=== PATIENT | female | born 1940 | race Asian ===

== ENCOUNTER → 2018-08-10 08:32 | Outpatient (CLI) | payer OTHER, SELFPAY ==
--- NOTE | 2018-08-10 | DI.MRI.S_ITS ---
PROCEDURE: MR LUMBAR SPINE WO CON INDICATIONS: LUMBAR RADICULOPATHY TECHNIQUE: Noncontrast sagittal T1 spin echo and T2 fast echo, sagittal STIR, axial T1 and T2 fast spin echo through the lumbar spine. In cases with scoliosis, additional coronal T2 fast spin echo may be performed. COMPARISON: [facility], CR, XR LUMBAR SPINE WITH OBLIQUES, 07/04/2017, 9:38. [facility], MR, L-SPINE WITHOUT CONTRAST, 05/31/2015, 8:32. [facility], MR, L-SPINE WITHOUT CONTRAST, 01/23/2017, 12:01. FINDINGS: Image quality: Excellent. Alignment and Curvature: There is grade one anterolisthesis at L5-S1. Bone Marrow: Degenerative endplate signal changes at L2, L3, L4 and L5. No acute vertebral body compression fractures. Spinal Cord: Conus medullaris terminates at the L1-L2 level. Visualized cord demonstrates normal signal and size. Paraspinous Soft Tissues: No paravertebral masses. Multiple right renal cysts are present. L1-L2: Mild loss of disc height and disc desiccation. There is mild posterior disc bulge. The central canal is minimally narrowed. No foraminal stenosis. There is no significant change from the last exam. L2-L3: Severe loss of disc height and disc desiccation. There is diffuse posterior disc bulge and disc osteophyte complex. Mild bilateral facet arthropathy and moderate hypertrophy of ligament flavum. The central canal is moderately narrowed. Kiwxaftg-[id number]-[id number] right and moderate left foraminal stenosis. There is progression of disc and facet degeneration compared to the last exam. L3-L4: Moderate to severe loss of disc height and disc desiccation. There is diffuse posterior disc bulge and disc osteophyte complex. There may be annular fissure. Mild bilateral facet arthropathy and moderate hypertrophy of ligament flavum. The central canal is severely narrowed. Btlyfoih-pg-fvbqla bilateral foraminal stenosis. There is progression of disc and facet degeneration compared to the last exam. L4-L5: Moderate loss of disc height and disc desiccation. There is diffuse posterior disc bulge and disc osteophyte complex. Moderate bilateral facet arthropathy and hypertrophy of ligament flavum. The central canal is moderately narrowed. Severe left and moderate right foraminal stenosis. There is progression of disc and facet degeneration compared to the last exam. L5-S1: Reserved disc height and mild disc desiccation. There is diffuse posterior disc bulge. Severe left and moderate right facet arthropathy. The central canal is mildly narrowed. Moderate to severe left and moderate right foraminal stenosis. There is no significant change from the last exam. IMPRESSION: 1. Multilevel degenerative disc disease and facet arthropathy as described. 2. Multilevel central canal stenoses, severe at L3-L4, moderate at L2-L3 and L4-L5. 3. Multilevel foraminal stenoses as described, severe at L4-L5 on the left, and moderate to severe L2-L3 on the right, L3 and L4 bilaterally and L5-S1 on the left. Dictated by: Chris Melgar M.D. on 08/12/2018 at 14:20 Approved by: Chris Melgar M.D. on 08/12/2018 at 14:39
== END ==
PROVIDERS: Family Provider Physical Medicine & Rehabilitation; PCP Physician Assistant Medical; Visit Provider Physician Assistant Medical
DX: M51.16 Intervertebral disc disorders with radiculopathy, lumbar region (principal); M51.17 Intervertebral disc disorders with radiculopathy, lumbosacral region; M47.26 Other spondylosis with radiculopathy, lumbar region; M47.27 Other spondylosis with radiculopathy, lumbosacral region; M48.061 Spinal stenosis, lumbar region without neurogenic claudication; M48.07 Spinal stenosis, lumbosacral region; M43.17 Spondylolisthesis, lumbosacral region; N28.1 Cyst of kidney, acquired
CPT/HCPCS: 72148

== ENCOUNTER → 2018-08-22 14:50 | Outpatient (CLI) | payer OTHER, SELFPAY ==
--- NOTE | 2018-08-22 14:53 | DI.RAD.S_ITS ---
PROCEDURE: XR LUMBAR SPINE MIN 4V INDICATIONS: left lower back and hip pain TECHNIQUE: 5 views of the lumbar spine were acquired. COMPARISON: None. FINDINGS: Bones: No fracture or focal osseous destruction. Straightening of the normal lumbar lordosis. Diffuse endplate spurring and sclerosis. Multilevel facet arthropathy. Severe narrowing of the disc spaces from L2-L5. Moderate L5-S1 disc space narrowing. Grade 1 anterolisthesis of L5 on S1. Bilateral hip joint degeneration, mild. Soft tissues: Overlying bowel gas pattern is normal. No suspicious soft tissue calcifications. Vascular opacification seen in the aorta. Oblique images: No pars defects. IMPRESSION: Multilevel lumbar disc degeneration and straightening of the normal lumbar lordosis. Diffuse facet arthropathy. Grade 1 anterolisthesis of L5 on S1. Levoscoliosis centered at L3. Dictated by: Laci Delgado M.D. on 08/22/2018 at 16:03 Approved by: Laci Delgado M.D. on 08/22/2018 at 16:05
== END ==
PROVIDERS: Family Provider Physical Medicine & Rehabilitation; PCP Physician Assistant Medical; Visit Provider Physical Medicine & Rehabilitation
DX: M54.5 Low back pain (principal); M25.552 Pain in left hip; M16.0 Bilateral primary osteoarthritis of hip; M51.16 Intervertebral disc disorders with radiculopathy, lumbar region; M51.17 Intervertebral disc disorders with radiculopathy, lumbosacral region; M47.26 Other spondylosis with radiculopathy, lumbar region; M43.17 Spondylolisthesis, lumbosacral region; M41.86 Other forms of scoliosis, lumbar region
CPT/HCPCS: 72110

== ENCOUNTER 2018-09-10 09:01 | Outpatient (CLI) | payer OTHER, SELFPAY ==
[2018-09-10] VITALS (7 sets, daily range): BP systolic 120–157; BP diastolic 71–93; PULSE 66–74; RESP 14–18; TEMP 35.7; O2SAT 95–100
--- NOTE | 2018-09-10 09:05 | DI.RAD.S_ITS ---
PROCEDURE: PAIN L/S TRANSFORAMINAL INJECT INDICATIONS: RADICULOPATHY FINDINGS: Fluoroscopic spot filming was performed to verify placement of a spinal needle at the left L3-L4 level(s), as labeled on the films. Appropriate location(s) of the needle tip(s) was confirmed by injection of iodinated contrast. IMPRESSION: Intraprocedural examination within normal limits. Dictated by: Duane Alcaraz M.D. on 09/11/2018 at 8:59 Approved by: Duane Alcaraz M.D. on 09/11/2018 at 8:59
--- NOTE | 2018-09-10 09:37 | PC.NURSE ---
ACCEPTED PT CARE OF PT POST PROC IN STABLE CONDITION
[2018-09-10] MEDS: MIDAZOLAM 5 MG/5 ML VIAL IV (09:40)
--- NOTE | 2018-09-10 09:49 | PC.NURSE ---
Procedure finished at 0948 pt had a difficult time getting off table, 3 person full assist to get into w/c as pt's legs were not cooperating, pt drowsy from 3mg versed. But following commands and able to take deep breaths. REturned pt to pre procedure room for continued monitoring by Adelia KING via W/C.
--- NOTE | 2018-09-10 09:59 | P.PCN_ITS ---
Procedures Date/Time Date of procedure: 09/10/18 Time of procedure: 09:56 General Procedure description: PROVIDER: Marcos Jackson DO Operative Note PREOP DIAGNOSIS 1. FORAMINAL STENOSIS WITH LE SYMPTOMS, POST OP DIAGNOSIS 1. FORAMINAL STENOSIS WITH LE SYMPTOMS, PROCEDURES 1. FLUOROSCOPICALLY GUIDED CONTRAST CONTROLLED TRANSFORAMINAL EPIDURAL STEROID INJECTION - LEFT L3/4 TFESI SURGEON: Marcos Jackson DO INDICATIONS Claribel is referred by PAC Young for treatment of Foraminal Stenosis with left LE Symptoms FINDINGS Foraminal Nerve Root Compression secondary to disc disease and facet hypertrophy DESCRIPTION OF PROCEDURE Following denial of allergy and review of potential side effects and complications, including, but not necessarily limited to, infection, allergic reaction, local tissue breakdown, stroke, temporary or permanent nerve injury, paralysis, and possible , the patient indicated that the patient understood and agreed to proceed. An informed consent document was signed by the patient, witnessed by a nurse, and placed in the patient's chart. Additionally, other treatment options including medications, modalities, and physical therapy were reviewed with the patient. After review of previous anaesthesic history and IV conscious sedation the patient was deemed safe to proceed with todays procedure with IV conscious sedation as ASA class II designation. Safety time-out was performed to confirm patient ID, procedure to be performed and site of procedure. IV sedation was accomplished with a combination of 3mg was administered by the RN after DO order , titrated to patient comfort during the course of the procedure while the patient remained responsive to all verbal commands In the prone position following sterile prep and drape of the lumbar region, the left L3/4 posterior neuroforamen was identified fluoroscopically. The skin was anesthetized via a 25-gauge 1.5-inch needle with 1% lidocaine solution. At this point, a 25-gauge 3.5-inch spinal needle was atraumatically introduced and advanced under fluoroscopic guidance through the posterior left L3/4 neuroforamen to approximately the anterior aspect of the canal. Depth was confirmed on lateral view. Following negative aspiration, injection of approximately 1.5 cc of Isovue 200 under live fluoroscopy in the AP view confirmed excellent flow along the nerve root, into the epidural space without vascular or intrathecal uptake observed Radiological data, including multiple fluoroscopic views of the lumbosacral spine, reveal a spinal needle at the left L3/4 posterior neuroforamen. Subsequent views show flow of contrast material flowing superiorly and inferiorly along the nerve root confirming epidural flow. Subsequently, a test dose of 1.5 cc of 1% lidocaine solution was administered and patient was observed for two minutes for signs or symptoms of complications , including abdominal pain, shortness of breath, bilateral upper or lower extremity weakness, nausea and vomiting, prior to steroid injection. At this point, a total of 3 cc or 20 mg of dexamethasone and 80mg Depo medrol was injected without incident. The patient tolerated the procedure well without signs or symptoms of complications prior to transfer to the recovery area continued monitoring without incident. The patient was then transferred to the recovery area where they were observed for an appropriate time after the injection. The patient reported a VAS score of 7 prior to the procedure and a post-procedure VAS of 0. Total Fluoroscopy Time: 24.2 seconds Total Conscious Sedation Time: 24min POST OP INSTRUCTIONS The patient was provided a Pain Log to continue to record their response to the target-specific procedure prior to follow-up visit with their referring physician. Additionally, specific post-injection care instructions and a contact number to our office were provided if concerns arise regarding possible complications associated with the procedure are suspected. Marcos Jackson, Complications: none
--- NOTE | 2018-09-10 11:03 | PC.NURSE ---
PT CONTINUES TO BE MONITORED IN POST PROC AREA DUE TO BILATERAL LEG NUMBNESS
[2018-09-10] MEDS: methylPREDNISolone acetate 80 MG/ML VIAL INJ (11:34)
[2018-09-10] MEDS: DEXAMETHASONE 10 MG/ML VIAL 20 MG INJ (11:34)
[2018-09-10] MEDS: IOPAMIDOL 15 ML VIAL 3 ML INJ (11:34)
[2018-09-10] MEDS: BUPIVACAINE 0.25% (PF) VIAL 2 ML INJ (11:35)
--- NOTE | 2018-09-10 11:50 | PC.NURSE ---
BILATERAL LEG SENSATION AND MOBILITY IMPROVING. PT ABLE TO USE RIGHT LEG NORMALLY, LEFT LEG IS STILL WEAK. ABLE TO TRANSFER FROM WHEELCHAIR TO CHAIR BUT PT WILL CONTINUE TO RECOVER IN POST RECOVERY AREA UNTIL PT CAN STAND AND WALK WITH MINIMAL ASSISTANCE TO PREVENT FALLS.
--- NOTE | 2018-09-11 16:19 | PC.NURSE ---
FOLLOW UP CALL MADE. PT COMPLAINED OF INCREASED PAIN YESTERDAY AFTER PROCEDURE BUT DENIES ANY RETURNING LEG NUMBNESS NOTED IMMEDIATELY AFTER PROCEDURE AND STATES THAT TODAY SHE IS PAIN FREE. VERBALLY DENIED ANY OTHER QUESTIONS OR CONCERNS. REMINDED HER TO CONTINUE FILLING OUT HER GREEN SHEET AND BRING IT TO FOLLOW UP APPT.
== END 2018-09-10 12:31 | disposition home or self-care (01) ==
LOC: RAD 09:01
PROVIDERS: Family Provider Physical Medicine & Rehabilitation; PCP Physician Assistant Medical; Visit Provider Physical Medicine & Rehabilitation
DX: M48.061 Spinal stenosis, lumbar region without neurogenic claudication (principal); M51.16 Intervertebral disc disorders with radiculopathy, lumbar region; M47.27 Other spondylosis with radiculopathy, lumbosacral region; M16.12 Unilateral primary osteoarthritis, left hip; M70.62 Trochanteric bursitis, left hip
CPT/HCPCS: 64483; 99152; J1040; J1100; J2250

== ENCOUNTER 2019-01-07 09:35 | Outpatient (CLI) | payer OTHER, SELFPAY ==
[2019-01-07] VITALS (8 sets, daily range): BP systolic 137–171; BP diastolic 73–99; PULSE 63–76; RESP 16–18; TEMP 36.3; O2SAT 97–100
--- NOTE | 2019-01-07 09:38 | DI.RAD.S_ITS ---
PROCEDURE: PAIN L/S TRANSFORAMINAL INJECT INDICATIONS: RADICULOPATHTY FINDINGS: Fluoroscopic spot filming was performed to verify placement of spinal needles at the L3-4 level(s), as labeled on the films. Appropriate location(s) of the needle tip(s) was confirmed by injection of iodinated contrast. Dictated by: Laci Delgado M.D. on 01/08/2019 at 9:35 Approved by: Laci Delgado M.D. on 01/08/2019 at 9:36
[2019-01-07] MEDS: MIDAZOLAM 5 MG/5 ML VIAL IV (10:35)
[2019-01-07] MEDS: DEXAMETHASONE 10 MG/ML VIAL 20 MG INJ (10:42)
[2019-01-07] MEDS: BUPIVACAINE 0.25% (PF) VIAL 2 ML INJ (10:42)
[2019-01-07] MEDS: IOPAMIDOL 15 ML VIAL 3 ML INJ (10:42)
--- NOTE | 2019-01-07 10:51 | PC.NURSE ---
pt tolerated procedure but needed to be fully assisted off the table as her legs were numb. She was not able to bear weight on either leg. pt needed reversal to versed also as she was too groggy and kept complaining about how dizzy she was. Brought pt via wheelchair to pre procedure room. Report given to Adelia KING for continued monitoring.
[2019-01-07] MEDS: FLUMAZENIL 0.5 MG/5 ML MDV 0.2 MG IV (11:00)
--- NOTE | 2019-01-07 11:05 | P.PCN_ITS ---
Procedures Date/Time Date of procedure: 01/07/19 Time of procedure: 11:04 General Procedure description: PROVIDER: Marcos Jackson DO Operative Note PREOP DIAGNOSIS 1. FORAMINAL STENOSIS WITH LE SYMPTOMS, POST OP DIAGNOSIS 1. FORAMINAL STENOSIS WITH LE SYMPTOMS, PROCEDURES 1. FLUOROSCOPICALLY GUIDED CONTRAST CONTROLLED TRANSFORAMINAL EPIDURAL STEROID INJECTION - LEFT L3/4 TFESI SURGEON: Marcos Jackson DO INDICATIONS Claribel is referred by PAC Young for treatment of Foraminal Stenosis with right LE Symptoms FINDINGS Foraminal Nerve Root Compression secondary to disc disease and facet hypertrophy DESCRIPTION OF PROCEDURE Following denial of allergy and review of potential side effects and complications, including, but not necessarily limited to, infection, allergic reaction, local tissue breakdown, stroke, temporary or permanent nerve injury, paralysis, and possible , the patient indicated that the patient understood and agreed to proceed. An informed consent document was signed by the patient, witnessed by a nurse, and placed in the patient's chart. Additionally, other treatment options including medications, modalities, and physical therapy were reviewed with the patient. After review of previous anaesthesic history and IV conscious sedation the patient was deemed safe to proceed with todays procedure with IV conscious sedation as ASA class II designation. Safety time-out was performed to confirm patient ID, procedure to be performed and site of procedure. IV sedation was accomplished with 3mg of Versed was administered by the RN after DO order, titrated to patient comfort during the course of the procedure while the patient remained responsive to all verbal commands In the prone position following sterile prep and drape of the lumbar region, the right L3/4 posterior neuroforamen was identified fluoroscopically. The skin was anesthetized via a 25-gauge 1.5-inch needle with 1% lidocaine solution. At this point, a 25-gauge 3.5-inch spinal needle was atraumatically introduced and adva nced under fluoroscopic guidance through the posterior right L3/4 neuroforamen to approximately the anterior aspect of the canal. Depth was confirmed on lateral view. Following negative aspiration, injection of approximately 1.5 cc of Isovue 200 under live fluoroscopy in the AP view confirmed excellent flow along the nerve root, into the epidural space without vascular or intrathecal uptake observed Radiological data, including multiple fluoroscopic views of the lumbosacral spine, reveal a spinal needle at the right L3/4 posterior neuroforamen. Subsequent views show flow of contrast material flowing superiorly and inferiorly along the nerve root confirming epidural flow. Subsequently, a test dose of 1.5 cc of 1% lidocaine solution was administered and patient was observed for two minutes for signs or symptoms of complications, including abdominal pain, shortness of breath, bilateral upper or lower extremity weakness, nausea and vomiting, prior to steroid injection. At this po int, a total of 2cc or 20mg of dexamethasone was injected without incident. The patient tolerated the procedure well without signs or symptoms of complications prior to transfer to the recovery area continued monitoring without incident. The patient was then transferred to the recovery area where they were observed for an appropriate time after the injection. The patient reported a VAS score of 7 prior to the procedure and a post-procedure VAS of 0. Total Fluoroscopy Time: 24.2 seconds Total Conscious Sedation Time: 24min POST OP INSTRUCTIONS The patient was provided a Pain Log to continue to record their response to the target-specific procedure prior to follow-up visit with their referring physician. Additionally, specific post-injection care instructions and a contact number to our office were provided if concerns arise regarding possible complications associated with the procedure are suspected. Marcos Jackson DO Complications: none
--- NOTE | 2019-01-07 11:20 | PC.NURSE ---
ACCEPTED CARE OF PT. PT IS ALERT BUT SLEEPY AND C/O NUMBNESS OF BLE'S. PT UNABLE TO TRANSFER FROM WC TO CHAIR, NEEDED FULL ASSIST 3 PERSON LIFT TO CHAIR. PT SAFELY IN CHAIR AND WILL BE MONITORED UNTIL SENSATION HAS BEEN RESTORED TO BLE'S.
--- NOTE | 2019-01-07 11:49 | PC.NURSE ---
PT STATES SHE IS STARTING TO FEEL SENSATION IN BLE'S
--- NOTE | 2019-01-07 12:56 | PC.NURSE ---
PT NOW ABLE TO STAND INDEPENDENTLY AND WALK MULTIPLE STEPS BOTH FORWARDS AND BACKWARDS WITH MINIMAL ASSISTANCE. AFTER TALKING WITH PT AND , ESTABLISHED THAT PT HAS SINGLE LEVEL HOME AND A CANE FOR AMBULATION ASSISTANCE AT HOME. SPOUSE ALSO STATED HE WILL HELP HER. ALSO ESTABLISHED THAT THEY HAVE MORE THAN AN HOUR RIDE HOME WITH NO PLANS TO LEAVE THE VEHICLE UNTIL ARRIVAL TO HOME. TRANSPORTING PT BY WHEELCHAIR TO PERSONAL VEHICLE AND ASSISTED HER INTO CAR WITHOUT INCIDENT.
== END 2019-01-07 13:00 | disposition home or self-care (01) ==
PROVIDERS: Family Provider Physical Medicine & Rehabilitation; PCP Physician Assistant Medical; Visit Provider Physical Medicine & Rehabilitation
DX: M48.061 Spinal stenosis, lumbar region without neurogenic claudication (principal); M51.16 Intervertebral disc disorders with radiculopathy, lumbar region
CPT/HCPCS: 64483; 99152; J1100; J2250; J3010

== ENCOUNTER 2019-03-20 10:16 | Outpatient (CLI) | payer OTHER, SELFPAY ==
[2019-03-20] VITALS (13 sets, daily range): BP systolic 143–180; BP diastolic 75–110; PULSE 63–73; RESP 16–20; TEMP 35.8; O2SAT 95–100
--- NOTE | 2019-03-20 10:17 | DI.RAD.S_ITS ---
PROCEDURE: PAIN L/SI FACET INJ/BLK 1STL INDICATIONS: SPONDYLOSIS FINDINGS: Fluoroscopic spot filming was performed to verify placement of spinal needles at the L4, L5, S1 level(s), as labeled on the films. Appropriate location(s) of the needle tip(s) was confirmed by injection of iodinated contrast. Dictated by: Laci Delgado M.D. on 03/20/2019 at 12:59 Approved by: Laci Delgado M.D. on 03/20/2019 at 13:00
[2019-03-20] MEDS: MIDAZOLAM 5 MG/5 ML VIAL IV (11:00)
[2019-03-20] MEDS: fentaNYL 100 MCG/2 ML INJ 50 MCG IV (11:00)
[2019-03-20] MEDS: LIDOCAINE 1% 20 ML INJ 10 ML INJ (11:07)
[2019-03-20] MEDS: BETAMETHASONE 30 MG/5 ML MDV 12 MG INJ (11:07)
[2019-03-20] MEDS: BUPIVACAINE 0.5% (PF) VIAL 5 ML INJ (11:07)
[2019-03-20] MEDS: IOPAMIDOL 15 ML VIAL 3 ML INJ (11:07)
--- NOTE | 2019-03-20 11:13 | PC.NURSE ---
pt tolerated procedure well. Able to get off the table with 2 person minimal assist. Transferred pt via wheelchair to pre procedure room for continued monitoring with Margie KING.
--- NOTE | 2019-03-20 11:17 | P.PCN_ITS ---
Procedures Date/Time Date of procedure: 03/20/19 Time of procedure: 11:15 General Procedure description: Procedure description: 1. FACET ARTHROPATHY PROCEDURES: 1. BILATERAL- L4, L5 and S1 MB BLOCKS PHYSICIAN: DO SIMON Garber Claribel is referred by HARIS Garcia for treatment of Bilateral Axial LBP. DESCRIPTION OF PROCEDURE Fluoroscopically guided, contrast-controlled bilateral L4, L5 and S1 medial branch blocks with 0.5cc of 0.5% Marcaine. Following review of allergy and review of potential side effects and complications, including, but not necessarily limited to, infection, allergic reaction, local tissue breakdown, nerve injury, paralysis, stroke and possible , the patient indicated that the patient understood and agreed to proceed. An informed consent document was signed by the patient, witnessed by a nurse, and placed in the patient's chart. After review of previous anaesthesic history and IV conscious sedation the patient was deemed safe to proceed with todays procedure with IV conscious sedation as ASA class II designation. Safety time-out was performed to confirm patient ID, procedure to be performed and site of procedure. IV sedation was accomplished with a combination of 2mg of Versed and 50 mg of fentanyl was administered by the RN after DO order, titrated to patient comfort during the course of the procedure while the patient remained responsive to all verbal commands In the prone position, following sterile prep and drape of the lumbar region, the right L4, L5 and S1 anatomical location of the medial branch of the dorsal ramus was identified fluoroscopically. Subsequently an anesthetic skin wheal using 1% lidocaine solution was initiated at each of the anatomical spots. Subsequently then a 22-gauge 3.5-inch spinal needle was atraumatically introduced and advanced under fluoroscopic guidance at each of the corresponding sites at the right L4, L5 and S1 MB. After negative aspiration, 0.2 cc of Isovue 200 was injected, confirming placement without vascular or intrathecal uptake. Subsequently then 0.5 cc of 0.5% Marcaine solution was injected at each of the corresponding sites at the right L4, L5 and S1 medial branch locations. The identical procedure was replicated on the left. The patient tolerated the procedure well without signs or symptoms of complications prior to transfer to the recovery area continued monitoring without incident. Post-procedure, the patient was monitored initiating provocative activities to measure the amount of relief from block of the facetogenic pain. The patient reported a VAS of 7 prior to the procedure and a post-procedure VAS of 1. It has been a pleasure to assist in the diagnostic and therapeutic care of your patient. Total Fluoroscopy Time: 24.8 seconds Total Conscious Sedation Time: 24min POST OP INSTRUCTIONS The patient was provided with a Pain Log to complete over the next several hours and subsequent days prior to the patient's follow up with the ordering physician. If the patient has transit mixer operator relief to the solution applied, then they may be a candidate for medial branch rhizotomy. The patient is aware, was provided, once again, with a Pain Log and will follow up with the referring physician for review and clinical correlation Marcos Jackson DO Complications: none
--- NOTE | 2019-03-20 11:26 | PC.NURSE ---
Patient returns to treatment room after stop to bathroom. Assisted to chair by staff
== END 2019-03-20 12:00 ==
LOC: RAD 10:17
PROVIDERS: Family Provider Physical Medicine & Rehabilitation; PCP Physician Assistant Medical; Visit Provider Physical Medicine & Rehabilitation
DX: M47.816 Spondylosis without myelopathy or radiculopathy, lumbar region (principal); M47.817 Spondylosis without myelopathy or radiculopathy, lumbosacral region
CPT/HCPCS: 64493; 64494; 99152; J0702; J2250; J3010

== ENCOUNTER 2019-07-15 11:07 | Outpatient (CLI) | payer OTHER, SELFPAY ==
[2019-07-15] VITALS (15 sets, daily range): BP systolic 131–171; BP diastolic 81–95; PULSE 64–75; RESP 16–18; O2SAT 93–98
--- NOTE | 2019-07-15 11:09 | DI.RAD.S_ITS ---
PROCEDURE: PAIN L/S MED/LAT N RFA BILAT INDICATIONS: RADICULOPATHY FINDINGS: Fluoroscopic spot filming was performed to verify placement of spinal needles at the L4, L5, S1 level(s), as labeled on the films. Appropriate location(s) of the needle tip(s) was confirmed by injection of iodinated contrast. Dictated by: Laci Delgado M.D. on 07/15/2019 at 15:20 Approved by: Laci Delgado M.D. on 07/15/2019 at 15:20
[2019-07-15] MEDS: MIDAZOLAM 5 MG/5 ML VIAL IV (12:11)
[2019-07-15] MEDS: fentaNYL 100 MCG/2 ML INJ 50 MCG IV (12:12)
[2019-07-15] MEDS: BETAMETHASONE 30 MG/5 ML MDV 12 MG INJ (12:32)
[2019-07-15] MEDS: LIDOCAINE 1% 20 ML 10 ML INJ (12:32)
[2019-07-15] MEDS: BUPIVACAINE 0.5% (PF) VIAL 2 ML INJ (12:33)
--- NOTE | 2019-07-15 12:43 | PC.NURSE ---
ASSISTING PT OFF TABLE AND TRANSPORTING TO POST PROC AREA IN STABLE CONDITION.
--- NOTE | 2019-07-15 12:48 | P.PCN_ITS ---
Procedures Date/Time Date of procedure: 07/15/19 Time of procedure: 12:48 General Procedure description: PREOP DIAGNOSIS 1. RECALCITRANT FACET ARTHROPATHY, POST OP DIAGNOSIS 1. RECALCITRANT FACET ARTHROPATHY PROCEDURES 1. BILATERAL L4 AND L5 MEDIAL BRANCH RADIOFREQUENCY NEUROTOMY AND S1 DORSAL RAMUS BRANCH RADIOFREQUENCY NEUROTOMY, PHYSICIAN: Marcos Jackson DO INDICATIONS: Claribel is referred by ROMERO Garcia for treatment of facet arthropathy. DESCRIPTION OF PROCEDURE Right L4 and L5 medial branch radiofrequency neurotomy and right S1 dorsal ramus radiofrequency neurotomy under fluoroscopy with conscious sedation. The patient is well known to this clinic having undergone previous facet injections with good but temporary relief. The patient has experienced appropriate, concordant relief with previous facet and median branch blocks but the patient's pain has been recalcitrant to further conservative measures. Therefore, based upon the patient's relief and persistent symptoms, the patient is considered an appropriate candidate for facet rhizotomy. All of the patient's questions regarding the risks versus benefits of the procedure, including, but not limited to, bleeding, infection, temporary as well as lasting nerve injury, paralysis, stroke, and , as well treatment alternatives were answered to satisfaction. After obtaining informed consent, denial of pertinent drug allergies, as well as being made aware of the potential risks of bleeding, infection, spinal cord trauma, paralysis, temporary and permanent nerve damage, seizure, stroke, and possible , the patient was brought to the fluoroscopy suite and positioned prone on the fluoroscopy table. The lumbar region was prepped with Betadine and covered with a fenestrated drape in the usual sterile fashion. Appropriate monitors applied including pulse oximeter, pulse, and blood pressure for regular monitoring throughout the procedure. After review of previous anaesthesic history and IV conscious sedation the patient was deemed safe to proceed with todays procedure with IV conscious sedation as ASA class II designation. Safety time-out was performed to confirm patient ID, procedure to be performed and site of procedure. IV sedation was accomplished with a combination of 3mg of Versed and 50mcg of Fentanyl administered by the RN after DO order, titrated to patient comfort during the course of the procedure while the patient remained responsive to all verbal commands. After local infiltration using 1% lidocaine, under fluoroscopic guidance, a 10- cm RF insulated needle with a 10-mm active tip was positioned parallel to the junction of the right sacral ala and the superior articulating process where the S1 dorsal ramus resides. Needle placement was confirmed with sensory stimulation at 50 Hz, with motor stimulation of .5v on the right which produced local stimulation without radicular component. The stimulation was then increased to 1.5v with, once again, only local multifidus stimulation without radicular component. This was then followed by two discreet lesions performed at 80 degrees Celsius for 90 seconds each. The needle was then removed and the identical procedure was performed along the length of the right L5 medial branch with motor stimulation at .7v on the right. The identical procedure was once again performed along the length of the right L4 medial branch with motor stimulation of .5v on the right. The identical procedure was repeated on the left. The patient tolerated the procedure well without signs or symptoms of complications prior to transfer to the recovery area continued monitoring without incident. The patient was then transferred to the recovery area where they were observed for an appropriate period of time after the injection. The patient reported a VAS score of 9 prior to the procedure and a post-procedure VAS of 0. Total Fluoroscopy Time: 22.7 seconds Total Conscious Sedation Time: 34min POST OP INSTRUCTIONS The patient was provided a Pain Log to continue to record the patient's response to the target-specific procedure prior to the patient's follow-up visit with the referring physician. Additionally, specific post-injection care instructions and a contact number to our office were provided if concerns arise regarding possible complications associated with the procedure are suspected. Marcos Jackson DO Complications: none
== END 2019-07-15 13:30 | disposition home or self-care (01) ==
PROVIDERS: Family Provider Physician Assistant Medical; PCP Physician Assistant Medical; Visit Provider Physical Medicine & Rehabilitation
DX: M47.816 Spondylosis without myelopathy or radiculopathy, lumbar region (principal); M47.817 Spondylosis without myelopathy or radiculopathy, lumbosacral region
CPT/HCPCS: 64635; 64636; 99152; 99153; J0702; J2250; J3010

== ENCOUNTER → 2020-08-06 11:43 | Outpatient (CLI) | payer OTHER, SELFPAY ==
--- NOTE | 2020-08-06 11:46 | DI.RAD.S_ITS ---
PROCEDURE: XR HIP W PEL IF DONE LT 2V INDICATIONS: left hip pain TECHNIQUE: AP pelvis with lateral view(s) of the left hip(s). COMPARISON: None. FINDINGS: Bones: No fracture. Lower lumbar spondylosis and facet arthropathy. Mild bilateral hip joint degeneration. Soft tissues: Presumed calcified uterine fibroid although technically nonspecific. There are scattered vascular calcifications. IMPRESSION: Mild bilateral hip joint degeneration. If the patient's pain or other symptoms persist, consider further evaluation with MRI Dictated by: Laci Delgado M.D. on 08/06/2020 at 13:13 Approved by: Laci Delgado M.D. on 08/06/2020 at 13:15
== END ==
PROVIDERS: Family Provider Physician Assistant Medical; PCP Physician Assistant Medical; Referring Provider Physician Assistant; Visit Provider Physician Assistant
DX: M25.552 Pain in left hip (principal); M16.0 Bilateral primary osteoarthritis of hip; M47.816 Spondylosis without myelopathy or radiculopathy, lumbar region
CPT/HCPCS: 73503

== ENCOUNTER 2022-04-08 10:36 | Emergency (ER) | payer OTHER, SELFPAY ==
[2022-04-08 10:40] VITALS: BP 214/99; PULSE 74; RESP 16; TEMP 36.6; O2SAT 98; BMI 28.0
== END 2022-04-08 12:13 | disposition left against medical advice (07) ==
PROVIDERS: Emergency Provider Physician Assistant; Family Provider Physician Assistant Medical; PCP Physician Assistant Medical
DX: R30.0 Dysuria (principal)
CPT/HCPCS: 81003; 99281